=== PATIENT | female | born 1990 | race Caucasian/White ===

== ENCOUNTER 2017-01-27 12:34 | Emergency (ER) | payer BC ==
--- NOTE | 2017-01-27 14:34 | RAD ---
Indication: Left shoulder injury. 3 views of left shoulder demonstrates an anterior inferior dislocation of the humeral head. IMPRESSION: Anterior inferior dislocation of the humeral head.
[2017-01-27 15:22] VITALS: BP 122/78
--- NOTE | 2017-01-27 15:54 | RAD ---
Indication: Left shoulder dislocation Single view of the left shoulder demonstrates reduction of the previously identified anterior inferior dislocation of the humeral head. IMPRESSION: Reduction of previously identified anterior inferior dislocation of the left humeral head.
--- NOTE | 2017-01-27 17:48 | ED ---
Rissa Ortiz Alok, scribed for Sy Vasquez MD on 01/27/17 at 1350 . Adult Trauma - HPI Summary HPI Summary: 26F presents to the ED following a [place] this [place]. Pt states that she landed on her left shoulder and heard something snap. Pt is applying ice with slight alleviation and refuses pain medications. Pt c/o left shoulder pain and left upper arm pain. Pt denies back pain. Pt is allergic to Sulfa antibiotics. - History of Current Complaint Chief Complaint: EDExtremityUpper Stated Complaint: LT ARM INJURY Time Seen by Provider: 01/27/17 13:42 Hx Obtained From: Patient Mechanism of Injury: Fall Loss of Consciousness: no loss of consciousness Pain Intensity: 10 Pain Scale Used: 0-10 Numeric Location: Extremities Aggravating Factor(s): Nothing Alleviating Factor(s): Ice - Allergy/Home Medications Allergies/Adverse Reactions: Allergies Allergy/AdvReac Type Severity Reaction Status Date / Time Sulfa Antibiotics Allergy Rash Verified 01/27/17 12:35 PMH/Surg Hx/FS Hx/Imm Hx Endocrine/Hematology History: Denies: Hx Diabetes Cardiovascular History: Denies: Hx Hypertension Infectious Disease History: No Infectious Disease History: Denies: Traveled Outside the [place] in Last 30 Days - Family History Known Family History: Negative: Hypertension - Social History Occupation: Unemployed Review of Systems Negative: Fever Positive: Other - left shoulder pain, left arm pain. Negative: back pain All Other Systems Reviewed And Are Negative: Yes Physical Exam Triage Information Reviewed: Yes Vital Signs On Initial Exam: Initial Vitals Temp Pulse Resp BP Pulse Ox 97.6 F 64 16 136/77 99 01/27/17 12:37 01/27/17 12:37 01/27/17 12:37 01/27/17 12:37 01/27/17 12:37 Vital Signs Reviewed: Yes Appearance: Positive: Well-Appearing, No Pain Distress Skin: Positive: Warm, Skin Color Reflects Adequate Perfusion, Dry Head/Face: Positive: Normal Head/Face Inspection Eyes: Positive: Normal ENT: Positive: Normal ENT inspection Neck: Positive: Supple, Nontender Respiratory/Lung Sounds: Positive: Clear to Auscultation, Breath Sounds Present Cardiovascular: Positive: RRR Abdomen Description: Positive: Nontender, Soft Bowel Sounds: Positive: Present Musculoskeletal: Positive: Other - left shoulder tender to any ROM. Proximal Deformity. Neurological: Positive: Normal Psychiatric: Positive: Normal, Affect/Mood Appropriate Diagnostics - Vital Signs Vital Signs Temp Pulse Resp BP Pulse Ox 01/27/17 12:37 97.6 F 64 16 136/77 99 - Laboratory Lab Statement: Any lab studies that have been ordered have been reviewed, and results considered in the medical decision making process. - Radiology Shoulder XRAY Xray Interpretation: Positive (See Comments) - IMPRESSION: Anterior inferior dislocation of the humeral head. Radiology Interpretation Completed By: Radiologist Shoulder XRAY (Post Reduction) Xray Interpretation: Positive (See Comments) - IMPRESSION: Reduction of previously identified anterior inferior dislocation of the left humeral head. Radiology Interpretation Completed By: Radiologist Re-Evaluation - Re-Evaluation First Eval Re-Evaluation Time: 14:59 Change: Improved Comment: Shoudler reduction successful Adult Trauma Course/Dx - Course Course Of Treatment: Ms. Russell fell and felt a pop in her left shoulder. She had some deformity and was found to have an anterior dislocation. She had an intact neuro exam. She was adamntly against any medications so we tried prone positioning with a weight but she could not tolerate that. She was able to tolerate slow gentle traction/ countertraction with scapular manipulation ant that proved to be successful. I recommended not wearing the shoulder immobilizer more than a week and F/U with Ortho to consider PT etc. I'm not sure she will F/U. I recommended against yoga until cleared by Ortho. - Diagnoses Provider Diagnoses: Anterior dislocation of left shoulder Discharge - Discharge Plan Condition: Stable Disposition: HOME Patient Education Materials: Shoulder Dislocation (ED) Referrals: No Primary Care Phys,[facility]OPCP [Primary Care Provider] - Rachel ASTUDILLO,Rolando Mann [Medical Doctor] - Additional Instructions: Please follow up with Dr. Ramos (Orthopedics) The documentation as recorded by the Rissa sorto Alok accurately reflects the service I personally performed and the decisions made by me, Sy Vasquez MD.
== END 2017-01-27 15:21 | disposition home or self-care (01) ==
LOC: ED 12:34
DX: S43.005A Unspecified dislocation of left shoulder joint, initial encounter (principal); M25.512 Pain in left shoulder; M79.602 Pain in left arm; W19.XXXA Unspecified fall, initial encounter; Y93.89 Activity, other specified; Y92.89 Other specified places as the place of occurrence of the external cause
CPT/HCPCS: 99282